=== PATIENT | female | born 2000 | race Caucasian/White ===

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

== ENCOUNTER 2021-08-13 00:55 | Emergency (ER) | payer MEDICAID ==
[~2021-08-13] VITALS: Ht 167.6 cm; Wt 69.0 kg
[2021-08-13 02:08] LABS: URINE COLOR YELLOW
[2021-08-13 02:09] LABS: URINE APPEARANCE HAZY; URINE BILIRUBIN NEGATIVE (NEGATIVE); URINE BLOOD NEGATIVE (NEGATIVE); URINE GLUCOSE NEGATIVE (NEGATIVE); URINE KETONE NEGATIVE (NEGATIVE); URINE LEUKOCYTE ESTERASE NEGATIVE (NEGATIVE); URINE NITRATE NEGATIVE (NEGATIVE); URINE PROTEIN(semi-quant) TRACE (NEGATIVE); URINE UROBILINOGEN NORMAL (NORMAL)
[2021-08-13] MEDS ORDERED: CEPHALEXIN500 M1 PO (02:14)
[2021-08-13 02:20] VITALS: BP 118/68
== END 2021-08-13 02:20 | disposition home or self-care (01) ==
LOC: ED 00:55
PROVIDERS: Family Medicine
DX: N39.0 Urinary tract infection, site not specified (principal); S40.262A Insect bite (nonvenomous) of left shoulder, initial encounter; W57.XXXA Bitten or stung by nonvenomous insect and other nonvenomous arthropods, initial encounter